=== PATIENT | male | born 1975 | race Caucasian/White ===

== ENCOUNTER 2017-02-10 21:49 | Emergency (ER) | payer BC, OTHER ==
[~2017-02-10] VITALS: Ht 182.9 cm; Wt 165.0 kg
[2017-02-10 21:51] VITALS: BP 135/80; PULSE 80; RESP 16; TEMP 99.1; O2SAT 99
[2017-02-10] MEDS ORDERED: TRIA.1%T TOPICAL (22:35)
--- NOTE | 2017-02-10 22:41 | PD ---
HPI Chief Complaint: Skin Problem Time Seen by Provider: 22:37 Travel History International Travel<30 days: No Contact w/Intl Traveler<30days: No Traveled to known affect area: No History of Present Illness HPI 41-year-old male presents to the emergency department for evaluation of discoloration of the skin of the right elbow, swelling and itching. He states that he suspects that he been bitten by something on his right elbow a few days ago. There has become swollen and discolored. He has been scratching the area. Initially states that the swelling has actually improved somewhat since yesterday but was concerned due to the discoloration. He also states that he has some tingling into his fingers. He denies any fever or chills. He does state that he has diabetes which is controlled with diet and metformin. He does not use insulin. He denies any fever or chills. No drainage. No warmth. Patient states that he just moved to the area one week ago from [place]. [facility] Past Medical History Narrative Medical Diabetes, hypertension Diabetes: Yes (metformin) Patient Takes Glucophage: Yes Hypertension: Yes Immunizations Current: Yes Tetanus Vaccination: < 5 Years Influenza Vaccination: No Past Surgical History Surgical History: No Previous Surgery Social History Alcohol Use: No Tobacco Use: No Substance Use: No Allergies-Medications (Allergen,Severity, Reaction): Coded Allergies: No Known Drug Allergies (Verified Allergy, Unknown, 02/10/17) Reported Meds & Prescriptions Reported Meds & Active Scripts Active Triamcinolone Topical (Triamcinolone Acetonide) 0.1% Cream 1 Applic TOPICAL TID 10 Days Review of Systems Except as stated in HPI: all other systems reviewed are Neg Physical Exam Narrative GENERAL: This is a well-nourished, well-developed patient, in no apparent distress. SKIN: No rashes, ecchymoses or lesions. Warm and dry. HEAD: Atraumatic. Normocephalic. EYES: PERRL, EOMI, no discharge or injection. No scleral icterus. EARS: Clear NOSE: Nasal turbinates appear normal. THROAT: Mucosa pink and moist. Airway patent. NECK: Trachea midline. supple, moves head freely. LUNGS: Clear to auscultation. CV: Regular in rhythm. ABDOMEN: Soft nontender. EXT: No clubbing cyanosis. Examination of the right upper extremity reveals some mild swelling from the tip of the elbow down to the proximal forearm. The patient has some mild discoloration of the skin. It is not erythematous or warmth. There is no fluctuance or pointing. There is no pain in the elbow, wrist or hand. He is able to move his fingers freely. He has good sensation. He has intact median/ulnar/radial nerves. Data Data Last Documented VS Vital Signs Date Time Temp Pulse Resp B/P (MAP) Pulse Ox O2 Delivery O2 Flow Rate FiO2 02/10/17 21:51 99.1 80 16 135/80 (98) 99 Room Air MDM Medical Decision Making Medical Screen Exam Complete: Yes Emergency Medical Condition: Yes Medical Record Reviewed: Yes Differential Diagnosis Differential diagnoses: Cellulitis, abscess, insect bite, insect bite with local reaction. Narrative Course This is insect bite with local reaction. Patient's encouraged to take 50 mg of Benadryl every 4 hours. He is given a prescription for triamcinolone cream. Follow-up with the clinic in 2 days. Diagnosis Primary Impression: Insect bite of forearm with local reaction Qualified Codes: S50.861A - Insect bite (nonvenomous) of right forearm, initial encounter; W57.XXXA - Bitten or stung by nonvenomous insect and other nonvenomous arthropods, initial encounter Patient Instructions: General Instructions Additional Instructions: Rest. Elevation. Icepack. 50 g of Benadryl every 4 hours. Triamcinolone cream. Follow-up with the [place] [facility] 2 days. Return to the ER if any problems. Med/Other Pt SpecificInfo: Prescription(s) given Scripts Triamcinolone Topical (Triamcinolone Topical) 0.1% Cream 1 APPLIC TOPICAL TID for Inflammation for 10 Days, GM 0 Refills Prov: Gail Cesar DO 02/10/17 Disposition: 01 DISCHARGE HOME Condition: Stable Shayne Britt Feb 10, 2017 22:41
[2017-02-10] MEDS ORDERED: diphenhydrAMINE HCL 50 MG CAP PO ONE (22:45)
== END 2017-02-10 22:54 | disposition home or self-care (01) ==
LOC: EDTENT 21:49
DX: S50.861A Insect bite (nonvenomous) of right forearm, initial encounter (principal); W57.XXXA Bitten or stung by nonvenomous insect and other nonvenomous arthropods, initial encounter; I10 Essential (primary) hypertension; E11.9 Type 2 diabetes mellitus without complications
CPT/HCPCS: 99283; Q0163

== ENCOUNTER 2017-05-16 12:05 | Inpatient (IN) | payer BC, MEDICAID, OTHER ==
[~2017-05-16] VITALS: Ht 182.9 cm; Wt 184.4 kg
[2017-05-16] VITALS (10 sets, daily range): BP systolic 158–200; BP diastolic 79–98; PULSE 78–92; RESP 18–22; TEMP 98.3–98.7; O2SAT 90–99
[~2017-05-16 12:05] MED LIST: TRIA.1%T TOPICAL
[2017-05-16] MEDS ORDERED: LOSA100T PO (12:20)
[2017-05-16] MEDS ORDERED: METF1000 PO (12:20)
--- NOTE | 2017-05-16 12:28 | PD ---
HPI Chief Complaint: Chest Pain Time Seen by Provider: 12:12 Travel History International Travel<30 days: No Contact w/Intl Traveler<30days: No Traveled to known affect area: No History of Present Illness HPI 41-year-old male presents to the emergency department for evaluation of headache , fatigue, shortness breath, chest pain. Patient states she started with a headache and fatigue 2 days ago. He also started with bilateral swelling of the lower extremities 3 days ago. Patient reports 8 out of 10 headache to the entire head, aching. He states the chest pain started yesterday. Patient reports midsternal chest pain as well as in the back. He states is 8 out of 10 without radiation, throbbing. He has associated shortness of breath, states he feels like he cannot catch his breath. He also reports cough and congestion. No fevers. No abdominal pain. No nausea, vomiting, diarrhea. He reports history of hypertension and diabetes. He denies any cardiac history. No history of CHF. He is a nonsmoker, denies ever smoking. His mother at bedside states that she has history of [place] 2. Moderate severity. No exacerbating or alleviating factors. PFSH Past Medical History Diabetes: Yes Hypertension: Yes Immunizations Current: Yes Social History Alcohol Use: No Tobacco Use: No Substance Use: No Allergies-Medications (Allergen,Severity, Reaction): Coded Allergies: No Known Drug Allergies (Verified Allergy, Unknown, 05/16/17) Reported Meds & Prescriptions Reported Meds & Active Scripts Active Reported Losartan (Losartan Potassium) 100 Mg Tab 100 Mg PO DAILY Metformin (Metformin HCl) 1,000 Mg Tab 1,000 Mg PO BIDPC Review of Systems Except as stated in HPI: all other systems reviewed are Neg Physical Exam Narrative GENERAL: Well-nourished, well-developed obese male patient, afebrile. SKIN: Focused skin assessment warm/dry. HEAD: Normocephalic. Atraumatic EYES: No scleral icterus. No injection or drainage. NECK: Supple, trachea midline. No JVD or lymphadenopathy. CARDIOVASCULAR: Regular rate and rhythm without murmurs, gallops, or rubs. Bilateral radial and pedal pulses 2+. RESPIRATORY: Breath sounds equal bilaterally. No accessory muscle use. Lungs sounds clear to auscultation, diminished in the bases. Patient is to tachypneic. GASTROINTESTINAL: Abdomen soft, non-tender, nondistended. MUSCULOSKELETAL: No cyanosis. 1-2+ bilateral lower extremity edema. BACK: Nontender without obvious deformity. No CVA tenderness. Data Data Last Documented VS Vital Signs Date Time Temp Pulse Resp B/P (MAP) Pulse Ox O2 Delivery O2 Flow Rate FiO2 05/16/17 14:25 81 18 171/98 (122) 99 Nasal Cannula 2.00 05/16/17 12:06 98.3 Orders Orders Complete Blood Count With Diff (05/16/17 12:20) Basic Metabolic Panel (Bmp) (05/16/17 12:20) B-Type Natriuretic Peptide (05/16/17 12:20) Act Partial Throm Time (Ptt) (05/16/17 12:20) Prothrombin Time / Inr (Pt) (05/16/17 12:20) Magnesium (Mg) (05/16/17 12:20) Ckmb (Isoenzyme) Profile (05/16/17 12:20) Troponin I (05/16/17 12:20) Iv Access Insert/Monitor (05/16/17 12:20) Electrocardiogram (05/16/17 12:20) Ecg Monitoring (05/16/17 12:20) Oximetry (05/16/17 12:20) Oxygen Administration (05/16/17 12:20) Chest, Single Ap (05/16/17 12:20) Sodium Chloride 0.9% Flush (Ns Flush) (05/16/17 12:30) Bilateral Bp Monitoring (05/16/17 12:20) Aspirin Chew (Aspirin Chew) (05/16/17 12:30) CKMB (05/16/17 12:38) CKMB% (05/16/17 12:38) Ct Pulmonary Angiogram (05/16/17 ) Ketorolac Inj (Toradol Inj) (05/16/17 14:30) Metoclopramide Inj (Reglan Inj) (05/16/17 14:30) Diphenhydramine Inj (Benadryl Inj) (05/16/17 14:30) Iohexol 350 Inj (Omnipaque 350 Inj) (05/16/17 15:00) Blood Culture (05/16/17 15:18) Lactic Acid Sepsis Protocol (05/16/17 15:18) Ceftriaxone Inj (Rocephin Inj) (05/16/17 15:30) Azithromycin Inj (Zithromax Inj) (05/16/17 15:30) Admit Order (Ed Use Only) (05/16/17 15:56) Labs Laboratory Tests Test 05/16/17 12:38 05/16/17 15:45 White Blood Count 12.1 TH/MM3 Red Blood Count 4.23 MIL/MM3 Hemoglobin 11.7 GM/DL Hematocrit 35.3 % Mean Corpuscular Volume 83.4 FL Mean Corpuscular Hemoglobin 27.5 PG Mean Corpuscular Hemoglobin Concent 33.0 % Red Cell Distribution Width 14.4 % Platelet Count 360 TH/MM3 Mean Platelet Volume 7.3 FL Neutrophils (%) (Auto) 72.5 % Lymphocytes (%) (Auto) 18.1 % Monocytes (%) (Auto) 7.6 % Eosinophils (%) (Auto) 1.5 % Basophils (%) (Auto) 0.3 % Neutrophils # (Auto) 8.8 TH/MM3 Lymphocytes # (Auto) 2.2 TH/MM3 Monocytes # (Auto) 0.9 TH/MM3 Eosinophils # (Auto) 0.2 TH/MM3 Basophils # (Auto) 0.0 TH/MM3 CBC Comment DIFF FINAL Differential Comment Prothrombin Time 10.1 SEC Prothromb Time International Ratio 1.0 RATIO Activated Partial Thromboplast Time 26.3 SEC Blood Urea Nitrogen 9 MG/DL Creatinine 0.76 MG/DL Random Glucose 185 MG/DL Calcium Level 8.3 MG/DL Magnesium Level 1.7 MG/DL Sodium Level 138 MEQ/L Potassium Level 3.6 MEQ/L Chloride Level 104 MEQ/L Carbon Dioxide Level 30.1 MEQ/L Anion Gap 4 MEQ/L Estimat Glomerular Filtration Rate 113 ML/MIN Total Creatine Kinase 119 U/L Creatine Kinase MB 1.9 NG/ML Troponin I LESS THAN 0.02 NG/ML B-Type Natriuretic Peptide 52 PG/ML Lactic Acid Level 1.3 mmol/L [facility] Medical Decision Making Medical Screen Exam Complete: Yes Emergency Medical Condition: Yes Medical Record Reviewed: Yes Interpretation(s) Last Impressions Chest X-Ray 05/16/17 1220 Signed Impressions: Service Date/Time: Tuesday, May 16, 2017 12:47 - CONCLUSION: 1. Scattered patchiness within the right lung consistent with possible developing infiltrate. Clinical correlation is recommended. 2. Mild cardiomegaly. Rito Menendez MD CT Angiography 05/16/17 0000 Signed Impressions: Service Date/Time: Tuesday, May 16, 2017 14:40 - CONCLUSION: Infiltrates throughout the right upper lobe possible areas of pneumonia. No evidence of pulmonary embolism. Michele Moura MD Differential Diagnosis Pneumonia versus ACS versus CHF versus PE versus pneumothorax Narrative Course 41-year-old male presents to the emergency department for evaluation of fatigue , chest pain, shortness of breath, bilateral lower extremity edema, headache. EKG shows sinus rhythm, heart rate 91, no acute ST changes. CBC, BMP, BNP, CK, troponin, magnesium, PTT, PT/INR are ordered and pending. Chest x-ray is ordered and pending. Patient is given aspirin 162 mg by mouth. CBC shows leukocytosis 12.1, mild anemia with a hemoglobin 11.7, hematocrit 35.3. BMP shows hyperglycemia of 185. BNP is 52. CK is 119. Troponin is less than 0.02. Magnesium is 1.7. Coags are unremarkable. Chest x-ray shows scattered patchiness within the right lung consistent with possible developing infiltrate. CT pulmonary angiogram is ordered and shows infiltrates throughout the right upper lobe possible areas of pneumonia, no evidence of PE. Patient remains short of breath. He is currently on 2 L O2 nasal cannula. Blood cultures 2, lactic acid are ordered. Patient started on Rocephin 1 g IV , azithromycin 500 mg IV. [facility] is paged for admission. Dr. Martin accepted admission. Sepsis Criteria SIRS Criteria (2 or more): Heart rate over 90, WBC > 58623, < 4000 or > 10% bands Sepsis Criteria (SIRS+source): Infect source susp/known Diagnosis Primary Impression: Pneumonia Qualified Codes: J18.1 - Lobar pneumonia, unspecified organism Additional Impression: Sepsis Qualified Codes: A41.9 - Sepsis, unspecified organism Admitting Information Admitting Physician Requests: Admit Dasha Randolph May 16, 2017 12:28
[2017-05-16] MEDS ORDERED: SODIUM CHLORIDE 0.9% FLUSH 10 ML FLUSH IVF PRN (12:30)
[2017-05-16] MEDS ORDERED: ASPIRIN 81 MG CHEW TAB CHEW ONE (12:30)
[2017-05-16 12:52] LABS: AUTOMATED NEUTROPHIL # 8.8 TH/MM3 (1.8-7.7); BASOPHIL % 0.3 % (0.0-2.0); EOSINOPHIL # 0.2 TH/MM3 (0-0.4); EOSINOPHIL % 1.5 % (0.0-4.0); HEMATOCRIT 35.3 % (39.0-51.0); HEMO FLAGS DIFF FINAL; LYMPH % 18.1 % (9.0-44.0); LYMPHOCYTE # 2.2 TH/MM3 (1.0-4.8); MEAN CELL VOLUME 83.4 FL (80.0-100.0); MEAN CORPUSCULAR HEMOGLOBIN 27.5 PG (27.0-34.0); MONO % 7.6 % (0.0-8.0); NEUT % 72.5 % (16.0-70.0); PLATELET COUNT 360 TH/MM3 (150-450); RED BLOOD COUNT 4.23 MIL/MM3 (4.50-5.90); RED CELL DISTRIBUTION WIDTH 14.4 % (11.6-17.2); WHITE BLOOD COUNT 12.1 TH/MM3 (4.0-11.0)
[2017-05-16 12:59] LABS: APTT (PATIENT) 26.3 SEC (24.3-30.1); PROTHROMBIN TIME - PATIENT 10.1 SEC (9.8-11.6)
[2017-05-16 13:07] LABS: ANION GAP 4 MEQ/L (5-15); BICARBONATE 30.1 MEQ/L (21.0-32.0); BLOOD UREA NITROGEN 9 MG/DL (7-18); CHLORIDE 104 MEQ/L (98-107); GLOMERULAR FILTRATION RATE 113 ML/MIN (>89); MAGNESIUM 1.7 MG/DL (1.5-2.5); POTASSIUM 3.6 MEQ/L (3.5-5.1); SODIUM (NA) 138 MEQ/L (136-145)
[2017-05-16 13:09] LABS: CREATINE KINASE 119 U/L (39-308)
[2017-05-16 13:22] LABS: CKMB 1.9 NG/ML (0.5-3.6)
--- NOTE | 2017-05-16 13:52 | RADRPT ---
EXAM DATE/TIME: 05/16/2017 12:47 [facility] COMPARISON: No previous studies available for comparison. INDICATIONS : Short of breath MEDICAL HISTORY : Hypertension. Diabetes mellitus type II. SURGICAL HISTORY : None. ENCOUNTER: Initial ACUITY: 2 days PAIN SCORE: 0/10 LOCATION: chest FINDINGS: The heart is mildly prominent. Minimal patchiness is noted within the right lung consistent with poss ible developing infiltrate. Clinical correlation is recommended. The left lung is clear. CONCLUSION: 1. Scattered patchiness within the right lung consistent with possible developing infiltrate. Clinica l correlation is recommended. 2. Mild cardiomegaly. Rito Menendez MD on May 16, 2017 at 13:48 Board Certified Radiologist. This report was verified electronically.
[2017-05-16] MEDS ORDERED: KETOROLAC TROMETHAMINE 30 MG/ML (IVP) VIAL IV PUSH ONE ×2 (14:30→23:45)
[2017-05-16] MEDS ORDERED: diphenhydrAMINE HCL 50 MG/ML VIAL IV PUSH ONE (14:30)
[2017-05-16] MEDS ORDERED: METOCLOPRAMIDE HCL 10 MG/2 ML VIAL IV PUSH ONE (14:30)
[2017-05-16] MEDS ORDERED: IOHEXOL 350 MG/ML 10 ML VIAL (for RAD DIAG) IVCONTRAST ONE (15:00)
--- NOTE | 2017-05-16 15:06 | RADRPT ---
EXAM DATE/TIME: 05/16/2017 14:40 [facility] COMPARISON: No previous studies available for comparison. INDICATIONS : Bilateral Chest pain and trouble breathing. IV CONTRAST: 70 cc Omnipaque 350 (iohexol) IV RADIATION DOSE: 25.75 CTDIvol (mGy) ; Patient body habitus MEDICAL HISTORY : Hypertension. Diabetes SURGICAL HISTORY : Cholecystectomy. ENCOUNTER: Initial ACUITY: 2 days PAIN SCALE: 2/10 LOCATION: Bilateral chest TECHNIQUE: Volumetric scanning of the chest was performed using a pulmonary embolism protocol MIP images were re constructed. Using automated exposure control and adjustment of the mA and/or kV according to patien t size, radiation dose was kept as low as reasonably achievable to obtain optimal diagnostic quality images. DICOM format image data is available electronically for review and comparison. Follow-up recommendations for detected pulmonary nodules are based at a minimum on nodule size and pa tient risk factors according to Fleischner Society Guidelines. FINDINGS: PULMONARY ARTERIES: No filling defects are seen in the pulmonary arteries through the segmental level. LUNGS: There numerous patchy areas of infiltrate in the right upper lobe and portions of the right lower lob e. PLEURAE: There is no pleural thickening but there are small bilateral pleural effusions. MEDIASTINUM: There is good visualization of the great vessels of the middle mediastinum. No evidence of mediastin al or hilar adenopathy/mass. MUSCULOSKELETAL: Within normal limits for patient age. MISCELLANEOUS: The visualized upper abdominal organs demonstrate no acute abnormality. Cholecystectomy clips CONCLUSION: Infiltrates throughout the right upper lobe possible areas of pneumonia. No evidence of pulmonary emb olism. Michele Moura MD on May 16, 2017 at 15:02 Board Certified Radiologist. This report was verified electronically.
[2017-05-16] MEDS ORDERED: AZITHROMYCIN INJ 500 MG in SODIUM CHLOR 0.9% 250 ML INJ 250 ML IV ONE (15:30)
[2017-05-16] MEDS ORDERED: cefTRIAXone INJ 1,000 MG in SODIUM CHLORIDE 0.9% INJ 100 ML IV ONE (15:30)
[2017-05-16] MEDS ORDERED: LACTULOSE SYRUP 20 GM/30 ML CUP PO PRN (16:15)
[2017-05-16] MEDS ORDERED: ONDANSETRON HCL 4 MG/2 ML VIAL IVP PRN (16:15)
[2017-05-16] MEDS ORDERED: MAGNESIUM HYDROXIDE SUSP 30 ML CUP PO PRN (16:15)
[2017-05-16] MEDS ORDERED: ACETAMINOPHEN 325 MG TAB PO PRN (16:15)
[2017-05-16] MEDS ORDERED: SODIUM CHLORIDE 0.9% FLUSH 10 ML FLUSH IV FLUSH PRN (16:15)
[2017-05-16] MEDS ORDERED: BISACODYL 10 MG SUPP RECTAL PRN (16:15)
[2017-05-16] MEDS ORDERED: SENNOSIDES 8.6 MG TAB PO PRN (16:15)
[2017-05-16] MEDS ORDERED: NALOXONE HCL 0.4 MG/ML AMP IV PUSH PRN (16:15)
--- NOTE | 2017-05-16 16:25 | HHI.HP ---
[facility]PI Service [facility] Primary [facility] Physician No Primary Care Physician Admission Diagnosis pneumonia, sepsis Diagnoses: (1) Pneumonia Diagnosis: Principal (2) Sepsis Diagnosis: Principal (3) Leg swelling Diagnosis: Secondary Chief Complaint: SOB with chest pain Travel History International Travel<30 Days: No Contact w/Intl Traveler <30 Da: No Traveled to Known Affected Are: No Sepsis Criteria SIRS Criteria (2 or more): Heart rate over 90, WBC > 28610, < 4000 or > 10% bands Sepsis Criteria (SIRS+source): Infect source susp/known Criteria Outcome: Meets SIRS criteria History of Present Illness Written by Stephanie Fried, acting as scribe for Dr. Martin on 05/16/17 at 17:16. 41-year-old male with PMH of HTN, DM, and sleep apnea. Who presented to the ED with complaints of SOB along with chest pain. Patient was seen and examined in ED stretcher with mother at bedside. He repots chest pain radiating to the back , worse with lying down, SOB worse on exertion. He also states that he feels as if his heart is working harder with exertion and could feel his heart working harder.Report a cough but no productive with no fever, but endorses chills and headaches. He states that he feels as if he has wheezing with his breathing. Denies nausea, vomiting, diarrhea, or constipation. He also repots swelling of bilateral legs X3 days, but this has improved. He does not repot a history of DVT's. He denies any known past cardiac issues. He does have a history of RLS and would like to know if he could possibly get something for this while he is in the hospital. Review of Systems Constitutional: COMPLAINS OF: Chills Respiratory: COMPLAINS OF: Cough, Wheezing Cardiovascular: COMPLAINS OF: Chest pain, Dyspnea on Exertion, Lower Extremity Edema Except as stated in HPI: all other systems reviewed are Neg Past Family Social History Past Medical History Diabetes Hypertension Sleep apnea Restless leg syndrome Past Surgical History Cholecystectomy Reported Medications Reported Meds & Active Scripts Active Reported Losartan (Losartan Potassium) 100 Mg Tab 100 Mg PO DAILY Metformin (Metformin HCl) 1,000 Mg Tab 1,000 Mg PO BIDPC Allergies: Coded Allergies: No Known Drug Allergies (Verified Allergy, Unknown, 05/16/17) Family History Mother: Diabetes, hyperlipidemia, hypertension, stroke, MA Social History Tobacco: Denies Alcohol use: occasionally Illicit drug use: denies Physical Exam Vital Signs Vital Signs Date Time Temp Pulse Resp B/P (MAP) Pulse Ox O2 Delivery O2 Flow Rate FiO2 05/16/17 14:25 81 18 171/98 (122) 99 Nasal Cannula 2.00 05/16/17 13:20 80 18 169/87 (114) 97 Nasal Cannula 2.00 05/16/17 12:25 85 20 179/85 (116) 169/79 (109) 05/16/17 12:25 97 Nasal Cannula 2.00 05/16/17 12:20 88 20 179/85 (116) 97 Nasal Cannula 2.00 05/16/17 12:20 87 18 97 Nasal Cannula 2.00 05/16/17 12:06 98.3 92 22 200/92 (128) 90 Physical Exam GENERAL: This is a well-nourished, well-developed obese male, in no apparent distress. SKIN: No rashes, ecchymoses or lesions. Cool and dry. HEAD: Atraumatic. Normocephalic. No temporal or scalp tenderness. EYES: Pupils equal round and reactive. No scleral icterus. No injection or drainage. ENT: Nose without bleeding, purulent drainage or septal hematoma. Throat without erythema, tonsillar hypertrophy or exudate. Uvula midline. Airway patent. NECK: Trachea midline. No JVD or lymphadenopathy. Supple, nontender. CARDIOVASCULAR: Regular rate and rhythm without murmurs, gallops, or rubs. RESPIRATORY: Lateral lower lobe rales, No wheezes, or rhonchi. GASTROINTESTINAL: Abdomen soft, non-tender, nondistended. MUSCULOSKELETAL: Bilateral lower leg and ankle +1 pitting edema, No joint tenderness, effusion, or edema noted. NEUROLOGICAL: Awake and alert. Moves all extremities spontaneously. Motor and sensory grossly within normal limits. Five out of 5 muscle strength in all muscle groups. Normal speech. Laboratory Laboratory Tests Test 05/16/17 12:38 05/16/17 15:45 White Blood Count 12.1 Red Blood Count 4.23 Hemoglobin 11.7 Hematocrit 35.3 Mean Corpuscular Volume 83.4 Mean Corpuscular Hemoglobin 27.5 Mean Corpuscular Hemoglobin Concent 33.0 Red Cell Distribution Width 14.4 Platelet Count 360 Mean Platelet Volume 7.3 Neutrophils (%) (Auto) 72.5 Lymphocytes (%) (Auto) 18.1 Monocytes (%) (Auto) 7.6 Eosinophils (%) (Auto) 1.5 Basophils (%) (Auto) 0.3 Neutrophils # (Auto) 8.8 Lymphocytes # (Auto) 2.2 Monocytes # (Auto) 0.9 Eosinophils # (Auto) 0.2 Basophils # (Auto) 0.0 CBC Comment DIFF FINAL Differential Comment Prothrombin Time 10.1 Prothromb Time International Ratio 1.0 Activated Partial Thromboplast Time 26.3 Blood Urea Nitrogen 9 Creatinine 0.76 Random Glucose 185 Calcium Level 8.3 Magnesium Level 1.7 Sodium Level 138 Potassium Level 3.6 Chloride Level 104 Carbon Dioxide Level 30.1 Anion Gap 4 Estimat Glomerular Filtration Rate 113 Total Creatine Kinase 119 Creatine Kinase MB 1.9 Troponin I LESS THAN 0.02 B-Type Natriuretic Peptide 52 Date/Time Source Procedure Growth Status 05/16/17 15:45 Blood Peripheral Aerobic Blood Culture Pending Received 05/16/17 15:45 Blood Peripheral Anaerobic Blood Culture Pending Received Result Diagram: 05/16/17 1238 05/16/17 1238 Imaging Last Impressions Chest X-Ray 05/16/17 1220 Signed Impressions: Service Date/Time: Tuesday, May 16, 2017 12:47 - CONCLUSION: 1. Scattered patchiness within the right lung consistent with possible developing infiltrate. Clinical correlation is recommended. 2. Mild cardiomegaly. Rito Menendez MD CT Angiography 05/16/17 0000 Signed Impressions: Service Date/Time: Tuesday, May 16, 2017 14:40 - CONCLUSION: Infiltrates throughout the right upper lobe possible areas of pneumonia. No evidence of pulmonary embolism. Michele Moura MD Caprini VTE Risk Assessment Caprini VTE Risk Assessment: No/Low Risk (score <= 1) Caprini Risk Assessment Model Point Value = 1 Point Value = 2 Point Value = 3 Point Value = 5 Age 41-60 Minor surgery BMI > 25 kg/m2 Swollen legs Varicose veins or History of unexplained or recurrent spontaneous Oral contraceptives or hormone replacement Sepsis (< 1 month) Serious lung disease, including pneumonia (< 1 month) Abnormal pulmonary function Acute myocardial infarction Congestive heart failure (< 1 month) History of inflammatory bowel disease Medical patient at bed rest Age 61-74 Arthroscopic surgery Major open surgery (> 45 min) Laparoscopic surgery (> 45 min) Malignancy Confined to bed (> 72 hours) Immobilizing plaster cast Central venous access Age >= 75 History of VTE Family history of VTE Factor V Leiden Prothrombin [id number] Lupus anticoagulant Anticardiolipin antibodies Elevated serum homocysteine Heparin-induced thrombocytopenia Other congenital or acquired thrombophilia Stroke (< 1 month) Elective arthroplasty Hip, pelvis, or leg fracture Acute spinal cord injury (< 1 month) Prophylaxis Regimen Total Risk Factor Score Risk Level Prophylaxis Regimen 0-1 Low Early ambulation 2 Moderate Order ONE of the following: *Sequential Compression Device (SCD) *Heparin 5000 units SQ BID 3-4 Higher Order ONE of the following medications: *Heparin 5000 units SQ TID *Enoxaparin/Lovenox 40 mg SQ daily (WT < 150 kg, CrCl > 30 mL/min) *Enoxaparin/Lovenox 30 mg SQ daily (WT < 150 kg, CrCl > 10-29 mL/min) *Enoxaparin/Lovenox 30 mg SQ BID (WT < 150 kg, CrCl > 30 mL/min) AND/OR *Sequential Compression Device (SCD) 5 or more Highest Order ONE of the following medications: *Heparin 5000 units SQ TID (Preferred with Epidurals) *Enoxaparin/Lovenox 40 mg SQ daily (WT < 150 kg, CrCl > 30 mL/min) *Enoxaparin/Lovenox 30 mg SQ daily (WT < 150 kg, CrCl > 10-29 mL/min) *Enoxaparin/Lovenox 30 mg SQ BID (WT < 150 kg, CrCl > 30 mL/min) AND *Sequential Compression Device (SCD) Assessment and Plan Assessment and Plan 41-year-old male with PMH of HTN, DM, and sleep apnea. Who presented to the ED with complaints of SOB, chest pain, and bilateral leg swelling. Right upper lobe pneumonia, most likely community-acquired, meets SIRS criteria Active dyspnea - Chest x-ray results reviewed showing scattered patches within the right lung consistent with possible developing infiltrates, cardiomegaly - CT angiogram results reviewed showing infiltrates throughout the right upper lobe possible areas of pneumonia, no pulmonary embolism seen. - WBC count on admission 12.1, O2 sat 90% with pulse 92. - Patient was administered ceftriaxone and azithromycin while in the ED, will continue IV antibiotics for community-acquired pneumonia. - BC X2 obtained, follow results - O2 via nasal cannula with O2 sats now in high 90's - Chest pain likely related to PNA, troponin negative, EKG reviewed showing normal sinus rhythm. - PT for evaluation and treatment ordered Bilateral leg swelling, acute - CTA negative for PE - Order bilateral leg US to rule out DVT - 2D echo to check for new onset of CHF as x-ray did show cardiomegaly. HTN, uncontrolled - Will resume home dose of losartan - Continue monitoring BP trends - Telemetry ordered Diabetes, chronic - Will hold off on oral glycemic agents for the moment. - Diabetic diet, insulin sliding scale, adjust accordingly Restless leg syndrome, chronic - Trial of Requip, assess response tomorrow. VTE: -TESS alexe, SCD's, Sq Lovenox Patient discussed with SANJAY Vo in the ED This note was transcribed by RACHID Ramsey . I, Dr. Rabia Martin personally performed the history, physical exam, and medical decision making; and confirmed the accuracy of the information in the transcribed note. Authenticated by Dr. Rabia Martin on 05/16/17 at 17:16. Code Status Full code Discussed Condition With ED ANIMATION PRODUCER Physician Certification 2 Midnight Certification Type: Admission for Inpatient Services Order for Inpatient Services The services are ordered in accordance with Medicare regulations or non- Medicare payer requirements, as applicable. In the case of services not specified as inpatient-only, they are appropriately provided as inpatient services in accordance with the 2-midnight benchmark. Estimated LOS (days): 3 3 days is the estimated time the patient will need to remain in the hospital, assuming treatment plan goals are met and no additional complications. Post-Hospital Plan: Home Problem Qualifiers (1) Pneumonia: Qualified Codes: J18.1 - Lobar pneumonia, unspecified organism (2) Sepsis: Qualified Codes: A41.9 - Sepsis, unspecified organism Stephanie Fried May 16, 2017 16:25 Rabia Martin MD May 16, 2017 19:23
--- NOTE | 2017-05-16 16:44 | PD ---
Data Data Last Documented VS Vital Signs Date Time Temp Pulse Resp B/P (MAP) Pulse Ox O2 Delivery O2 Flow Rate FiO2 05/16/17 14:25 81 18 171/98 (122) 99 Nasal Cannula 2.00 05/16/17 12:06 98.3 Orders Orders Complete Blood Count With Diff (05/16/17 12:20) Basic Metabolic Panel (Bmp) (05/16/17 12:20) B-Type Natriuretic Peptide (05/16/17 12:20) Act Partial Throm Time (Ptt) (05/16/17 12:20) Prothrombin Time / Inr (Pt) (05/16/17 12:20) Magnesium (Mg) (05/16/17 12:20) Ckmb (Isoenzyme) Profile (05/16/17 12:20) Troponin I (05/16/17 12:20) Iv Access Insert/Monitor (05/16/17 12:20) Electrocardiogram (05/16/17 12:20) Ecg Monitoring (05/16/17 12:20) Oximetry (05/16/17 12:20) Oxygen Administration (05/16/17 12:20) Chest, Single Ap (05/16/17 12:20) Sodium Chloride 0.9% Flush (Ns Flush) (05/16/17 12:30) Bilateral Bp Monitoring (05/16/17 12:20) Aspirin Chew (Aspirin Chew) (05/16/17 12:30) CKMB (05/16/17 12:38) CKMB% (05/16/17 12:38) Ct Pulmonary Angiogram (05/16/17 ) Ketorolac Inj (Toradol Inj) (05/16/17 14:30) Metoclopramide Inj (Reglan Inj) (05/16/17 14:30) Diphenhydramine Inj (Benadryl Inj) (05/16/17 14:30) Iohexol 350 Inj (Omnipaque 350 Inj) (05/16/17 15:00) Blood Culture (05/16/17 15:18) Lactic Acid Sepsis Protocol (05/16/17 15:18) Ceftriaxone Inj (Rocephin Inj) (05/16/17 15:30) Azithromycin Inj (Zithromax Inj) (05/16/17 15:30) Admit Order (Ed Use Only) (05/16/17 15:56) Labs Laboratory Tests Test 05/16/17 12:38 05/16/17 15:45 White Blood Count 12.1 TH/MM3 Red Blood Count 4.23 MIL/MM3 Hemoglobin 11.7 GM/DL Hematocrit 35.3 % Mean Corpuscular Volume 83.4 FL Mean Corpuscular Hemoglobin 27.5 PG Mean Corpuscular Hemoglobin Concent 33.0 % Red Cell Distribution Width 14.4 % Platelet Count 360 TH/MM3 Mean Platelet Volume 7.3 FL Neutrophils (%) (Auto) 72.5 % Lymphocytes (%) (Auto) 18.1 % Monocytes (%) (Auto) 7.6 % Eosinophils (%) (Auto) 1.5 % Basophils (%) (Auto) 0.3 % Neutrophils # (Auto) 8.8 TH/MM3 Lymphocytes # (Auto) 2.2 TH/MM3 Monocytes # (Auto) 0.9 TH/MM3 Eosinophils # (Auto) 0.2 TH/MM3 Basophils # (Auto) 0.0 TH/MM3 CBC Comment DIFF FINAL Differential Comment Prothrombin Time 10.1 SEC Prothromb Time International Ratio 1.0 RATIO Activated Partial Thromboplast Time 26.3 SEC Blood Urea Nitrogen 9 MG/DL Creatinine 0.76 MG/DL Random Glucose 185 MG/DL Calcium Level 8.3 MG/DL Magnesium Level 1.7 MG/DL Sodium Level 138 MEQ/L Potassium Level 3.6 MEQ/L Chloride Level 104 MEQ/L Carbon Dioxide Level 30.1 MEQ/L Anion Gap 4 MEQ/L Estimat Glomerular Filtration Rate 113 ML/MIN Total Creatine Kinase 119 U/L Creatine Kinase MB 1.9 NG/ML Troponin I LESS THAN 0.02 NG/ML B-Type Natriuretic Peptide 52 PG/ML Lactic Acid Level 1.3 mmol/L [facility] Supervised Visit with KENYON: Yes Narrative Course The history, exam, and medical decision-making in the associated midlevel provider note were completed with my assistance. I reviewed and agree with the findings presented. I attest that I had a [id number] encounter with the patient on the same day, and personally performed and documented my assessment and findings in the medical record. *My assessment and Findings: This is a 41-year-old male who presents to the emergency department with chest discomfort and shortness of breath. He has a mild leukocytosis and is borderline hypoxic on arrival.. CT of the chest demonstrates a marked right sided pneumonia. Patient appears ill on exam and dyspneic. I think he would benefit from observation for IV antibiotics. Diagnosis Primary Impression: Pneumonia Qualified Codes: J18.1 - Lobar pneumonia, unspecified organism Additional Impression: Sepsis Qualified Codes: A41.9 - Sepsis, unspecified organism Alexandra Boudreaux MD May 16, 2017 16:44
[2017-05-16] MEDS: ENOXAPARIN SODIUM 40 MG/0.4 ML SYRINGE SQ SCH (17:00)
[2017-05-16] MEDS: SODIUM CHLOR 0.9% 1000 ML INJ 1,000 ML IV SCH (17:09)
[2017-05-16] MEDS ORDERED: DEXTROSE 50% IN WATER 50 ML VIAL(D50) IV PUSH PRN (18:15)
[2017-05-16] MEDS ORDERED: GLUCAGON 1 MG/ML VIAL OTHER PRN (18:15)
--- NOTE | 2017-05-16 18:31 | RADRPT ---
EXAM DATE/TIME: 05/16/2017 17:57 [place] COMPARISON: No previous studies available for comparison. INDICATIONS : Bilateral leg swelling. MEDICAL HISTORY : Hypertension. Diabestes. Alcohol use. Lugoff palsy. SURGICAL HISTORY : Cholecystectomy. ENCOUNTER: Initial ACUITY: 1 day PAIN SCORE: 2/10 LOCATION: Bilateral legs. TECHNIQUE: Venous ultrasound of the left and right leg was performed from the inguinal ligament to the proximal calf. Real-time, color Doppler and spectral tracing, compression and augmentation techniques were us ed. FINDINGS: RIGHT LEG: There is normal compressibility of the deep venous system from the inguinal region to the proximal ca lf. No echogenic clot is seen in the lumen of the common femoral, femoral, popliteal, and posterior tibial veins. There is a normal response of the venous system to proximal and distal augmentation an d respiration. LEFT LEG: There is normal compressibility of the deep venous system from the inguinal region to the proximal ca lf. No echogenic clot is seen in the lumen of the common femoral, femoral, popliteal, and posterior tibial veins. There is a normal response of the venous system to proximal and distal augmentation an d respiration. CONCLUSION: Normal examination. Michele Moura MD on May 16, 2017 at 18:29 Board Certified Radiologist. This report was verified electronically.
[2017-05-16] MEDS: SODIUM CHLORIDE 0.9% FLUSH 10 ML FLUSH IV FLUSH SCH (21:00)
[2017-05-16] MEDS: DOCUSATE SODIUM 50 MG/SENNA 8.6 MG TAB PO SCH (21:00)
[2017-05-16] MEDS: INSULIN ASPART SUPPLEMENTAL SCALE SQ SCH (21:00)
[2017-05-16] MEDS: TEMAZEPAM 15 MG CAP PO PRN (21:54)
[2017-05-16] MEDS ORDERED: TEMAZEPAM 15 MG CAP PO ONE (23:45)
[2017-05-17] VITALS (11 sets, daily range): BP systolic 153–189; BP diastolic 62–112; PULSE 78–100; RESP 18–20; TEMP 98.3–99.4; O2SAT 91–97
[2017-05-17] MEDS: SODIUM CHLOR 0.9% 1000 ML INJ 1,000 ML IV SCH ×2 (02:05→06:05)
[2017-05-17 07:12] LABS: BASOPHIL # 0.2 TH/MM3 (0-0.2); BASOPHIL % 1.4 % (0.0-2.0); EOSINOPHIL # 0.2 TH/MM3 (0-0.4); EOSINOPHIL % 1.4 % (0.0-4.0); HEMATOCRIT 33.4 % (39.0-51.0); HEMO FLAGS DIFF FINAL; LYMPH % 18.1 % (9.0-44.0); LYMPHOCYTE # 2.6 TH/MM3 (1.0-4.8); MEAN CORPUSCULAR HEMOGLOBIN 27.8 PG (27.0-34.0); MEAN CORPUSCULAR HGB CONC 33.2 % (32.0-36.0); NEUT % 71.1 % (16.0-70.0); PLATELET COUNT 366 TH/MM3 (150-450); RED BLOOD COUNT 3.98 MIL/MM3 (4.50-5.90); RED CELL DISTRIBUTION WIDTH 14.5 % (11.6-17.2); WHITE BLOOD COUNT 14.1 TH/MM3 (4.0-11.0)
[2017-05-17 07:35] LABS: BICARBONATE 28.3 MEQ/L (21.0-32.0); POTASSIUM 3.5 MEQ/L (3.5-5.1)
[2017-05-17] MEDS: INSULIN ASPART SUPPLEMENTAL SCALE SQ SCH ×4 (07:59→21:55)
[2017-05-17] MEDS ORDERED: KETOROLAC TROMETHAMINE 30 MG/ML (IVP) VIAL IV PUSH ONE (08:30)
[2017-05-17] MEDS: DOCUSATE SODIUM 50 MG/SENNA 8.6 MG TAB PO SCH ×2 (08:48→21:00)
[2017-05-17] MEDS: LOSARTAN 50 MG TAB PO SCH (08:48)
[2017-05-17] MEDS: SODIUM CHLORIDE 0.9% FLUSH 10 ML FLUSH IV FLUSH SCH ×2 (09:00→22:00)
[2017-05-17] MEDS ORDERED: ACETAMINOPHEN/HYDROcodone 325 MG/5 MG TAB PO PRN (13:30)
[2017-05-17] MEDS ORDERED: cloNIDine HCL 0.1 MG TAB PO PRN (13:30)
[2017-05-17] MEDS ORDERED: SUMAtriptan SUCCINATE 25 MG TAB PO PRN (13:30)
--- NOTE | 2017-05-17 13:34 | HHI.PR ---
Subjective Remarks And reports persistent headache. BP uncontrolled. States he normally takes Topamax for maintenance due to migraine headaches. No nausea or vomiting. No chest pressure. Objective Vitals Vital Signs Date Time Temp Pulse Resp B/P (MAP) Pulse Ox O2 Delivery O2 Flow Rate FiO2 05/17/17 13:01 93 20 171/62 (98) 05/17/17 12:00 99.4 92 20 178/112 (134) 93 05/17/17 11:44 100 05/17/17 08:00 99.0 92 20 189/103 (131) 94 05/17/17 07:55 89 05/17/17 07:54 Room Air 05/17/17 04:00 Room Air 05/17/17 04:00 98.5 93 20 153/91 (111) 91 05/17/17 00:00 98.9 89 20 163/93 (116) 94 05/17/17 00:00 88 05/17/17 00:00 Room Air 05/16/17 20:11 89 05/16/17 20:00 98.7 86 20 158/86 (110) 95 05/16/17 19:30 Room Air 05/16/17 18:59 05/16/17 17:10 82 18 173/95 (121) 98 Nasal Cannula 2.00 05/16/17 16:40 99 Nasal Cannula 2.00 05/16/17 16:00 78 18 175/85 (115) 98 Nasal Cannula 2.00 05/16/17 14:25 81 18 171/98 (122) 99 Nasal Cannula 2.00 I/O 05/16/17 05/16/17 05/16/17 05/17/17 05/17/17 05/17/17 07:00 15:00 23:00 07:00 15:00 23:00 Intake Total 1473 ml 500 ml Output Total 600 ml Balance 873 ml 500 ml Intake Oral 480 ml IV Total 993 ml 500 ml Output Urine Total 600 ml # Bowel Movements 0 Result Diagram: 05/17/17 0633 05/17/17 0633 Imaging Last Impressions Chest X-Ray 05/16/17 1220 Signed Impressions: Service Date/Time: Tuesday, May 16, 2017 12:47 - CONCLUSION: 1. Scattered patchiness within the right lung consistent with possible developing infiltrate. Clinical correlation is recommended. 2. Mild cardiomegaly. Rito Menendez MD Lower Extremity Ultrasound 05/16/17 0000 Signed Impressions: Service Date/Time: Tuesday, May 16, 2017 17:57 - CONCLUSION: Normal examination. Michele Moura MD CT Angiography 05/16/17 0000 Signed Impressions: Service Date/Time: Tuesday, May 16, 2017 14:40 - CONCLUSION: Infiltrates throughout the right upper lobe possible areas of pneumonia. No evidence of pulmonary embolism. Michele Moura MD Objective Remarks GENERAL: Obese male in no apparent distress. CARDIOVASCULAR: Normal rate and regular rhythm without murmurs, gallops, or rubs. RESPIRATORY: Good respiratory efforts. Faint rhonchi on the right base. Otherwise clear to auscultation bilaterally. GASTROINTESTINAL: Abdomen soft, non-tender, non-distended. Normal active bowel sounds MUSCULOSKELETAL: Extremities without cyanosis, or edema. NEURO: Alert & Oriented x4 to person, place, time, situation. Moves all ext x4 PSYCH: Appropriate mood and affect. A/P Problem List: (1) Pneumonia ICD Code: J18.9 - Pneumonia, unspecified organism Status: Acute (2) Sepsis ICD Code: A41.9 - Sepsis, unspecified organism Status: Acute (3) Leg swelling ICD Code: M79.89 - Other specified soft tissue disorders Assessment and Plan 41-year-old male with PMH of HTN, DM, and sleep apnea who presented to the ED with complaints of SOB, chest pain, and bilateral leg swelling. Right upper lobe pneumonia, most likely community-acquired, meets SIRS criteria. Both chest x-ray and CTA confirmed infiltrates Active dyspnea: Improving. - Continue antibiotics with Rocephin and azithromycin. Supplemental oxygen as needed - Incentive spirometry Bilateral leg swelling, acute: Could be dependent edema. - CTA negative for PE -Lower extremity ultrasound negative. - 2D echo to check for new onset of CHF as x-ray did show cardiomegaly. Migraines: - Uncontrolled. - Will try triptan. Resume Topomax at 50 mg. Patient does not know her home dose. HTN, uncontrolled - Resume home dose of losartan -Add Coreg. - Telemetry ordered - Clonidine as needed Diabetes, chronic -Hold oral hypoglycemic agents - Diabetic diet, insulin sliding scale, adjust accordingly Restless leg syndrome, chronic - Trial of Requip, assess response. VTE: -TESS peña, SCD's, Sq Lovenox Problem Qualifiers (1) Pneumonia: Qualified Codes: J18.1 - Lobar pneumonia, unspecified organism (2) Sepsis: Qualified Codes: A41.9 - Sepsis, unspecified organism Jaspreet Jimenez MD May 17, 2017 13:34
[2017-05-17] MEDS: CARVEDILOL 3.125 MG TAB PO SCH ×2 (13:58→21:52)
[2017-05-17] MEDS ORDERED: cefTRIAXone INJ 1,000 MG in SODIUM CHLORIDE 0.9% INJ 100 ML IV SCH (15:00)
[2017-05-17] MEDS ORDERED: AZITHROMYCIN INJ 500 MG in SODIUM CHLOR 0.9% 250 ML INJ 250 ML IV SCH (16:00)
--- NOTE | 2017-05-17 16:31 | EKG ---
Date Performed: 05/16/2017 Time Performed: 12:18:05 PTAGE: 41 years EKG: Sinus rhythm NORMAL ECG NO PREVIOUS TRACING DOCTOR: Elizabeth To Interpretating Date/Time 05/17/2017 16:29:26
[2017-05-17] MEDS: ENOXAPARIN SODIUM 40 MG/0.4 ML SYRINGE SQ SCH (16:45)
[2017-05-17] MEDS: TOPIRAMATE 25 MG TAB PO SCH (21:54)
[2017-05-17] MEDS: TEMAZEPAM 15 MG CAP PO PRN (21:59)
[2017-05-18] VITALS (7 sets, daily range): BP systolic 161–186; BP diastolic 103–111; PULSE 77–95; RESP 18–20; TEMP 98.1–99.1; O2SAT 92–96
[2017-05-18 07:11] LABS: HEMATOCRIT 34.4 % (39.0-51.0); MEAN CELL VOLUME 82.7 FL (80.0-100.0); MEAN CORPUSCULAR HGB CONC 33.9 % (32.0-36.0); PLATELET COUNT 392 TH/MM3 (150-450); RED BLOOD COUNT 4.16 MIL/MM3 (4.50-5.90); RED CELL DISTRIBUTION WIDTH 14.6 % (11.6-17.2); REVIEW FLAG FINAL
[2017-05-18] MEDS: LOSARTAN 50 MG TAB PO SCH (07:50)
[2017-05-18] MEDS: SODIUM CHLORIDE 0.9% FLUSH 10 ML FLUSH IV FLUSH SCH (07:50)
[2017-05-18] MEDS: TOPIRAMATE 25 MG TAB PO SCH (07:50)
[2017-05-18] MEDS: INSULIN ASPART SUPPLEMENTAL SCALE SQ SCH ×2 (07:50→12:00)
[2017-05-18] MEDS: CARVEDILOL 3.125 MG TAB PO SCH (07:50)
[2017-05-18] MEDS: DOCUSATE SODIUM 50 MG/SENNA 8.6 MG TAB PO SCH (07:52)
[2017-05-18] MEDS ORDERED: CARV6.252 PO (13:17)
[2017-05-18] MEDS ORDERED: AZIT500T2 PO (13:24)
[2017-05-18] MEDS ORDERED: CEFU1TAB20 PO (13:24)
--- NOTE | 2017-05-18 13:34 | HHI.DCPOC ---
Discharge Care Plan Diagnosis: (1) Pneumonia (2) Migraine (3) Hypertension Goals to Promote Your Health * To prevent worsening of your condition and complications * To maintain your health at the optimal level Directions to Meet Your Goals Take your medications as prescribed Follow your dietary instruction Follow activity as directed Keep your appointments as scheduled Take your immunizations and boosters as scheduled If your symptoms worsen call your PCP, if no PCP go to Urgent Care Center or Emergency Room Smoking is Dangerous to Your Health. Avoid second hand smoke Call the 24-hour hour crisis hotline for domestic abuse at Jaspreet Jimenez MD May 18, 2017 13:34
--- NOTE | 2017-05-18 16:19 | ECHRPT ---
Indication: Shortness of breath CONCLUSIONS The left ventricular systolic function is normal with an estimated ejection fraction in the range of 55-60%. Trace mitral valve regurgitation. There is trace tricuspid valve regurgitation. Trivial pulmonary valve regurgitation. BP: 148 / 84 HR: 105 Rhythm: Sinus MEASUREMENTS (Male / Female) Normal Values Technical Quality:Fair 2D ECHO LV Diastolic Diameter PLAX 5.3 cm 4.2 - 5.9 / 3.9 - 5.3 cm LV Systolic Diameter PLAX 4.0 cm IVS Diastolic Thickness 1.1 cm 0.6 - 1.0 / 0.6 - 0.9 cm LVPW Diastolic Thickness 1.1 cm 0.6 - 1.0 / 0.6 - 0.9 cm LV Relative Wall Thickness 0.4 LVOT Diameter 2.2 cm M-MODE Aortic Root Diameter MM 3.3 cm LA Systolic Diameter MM 4.0 cm LA Ao Ratio MM 1.2 AV Cusp Separation MM 2.3 cm DOPPLER AV Peak Velocity 110.0 cm/s AV Peak Gradient 4.8 mmHg LVOT Peak Velocity 93.8 cm/s LVOT Peak Gradient 3.5 mmHg AV Area Cont Eq pk 3.2 cm MR Peak Velocity 320.0 cm/s MR Peak Gradient 41.0 mmHg Mitral E Point Velocity 104.0 cm/s Mitral A Point Velocity 52.8 cm/s Mitral E to A Ratio 2.0 LV E' Lateral Velocity 16.8 cm/s Mitral E to LV E' Lateral Ratio 6.2 LV E' Septal Velocity 10.0 cm/s Mitral E to LV E' Septal Ratio 10.4 TR Peak Velocity 201.0 cm/s TR Peak Gradient 16.2 mmHg Right Atrial Pressure 10.0 mmHg Pulmonary Artery Systolic Pressu 26.2 mmHg Right Ventricular Systolic Press 26.2 mmHg PV Peak Velocity 102.0 cm/s PV Peak Gradient 4.2 mmHg FINDINGS LEFT VENTRICLE The left ventricular systolic function is normal with an estimated ejection fraction in the range of 55-60%. Wall thickness is measured at the upper limits of normal. Normal left ventricular size. There was limited left ventricular wall motion assessment due to poor endocardial visualization. Left ventricular diastolic function parameters are normal. RIGHT VENTRICLE Normal right ventricular size and systolic function. LEFT ATRIUM The left atrial size is mildly dilated. RIGHT ATRIUM The right atrial size is normal. ATRIAL SEPTUM Normal atrial septal thickness. AORTA The aortic root and proximal ascending aorta are normal in size on limited imaging. MITRAL VALVE Structurally normal mitral valve. Trace mitral valve regurgitation. No mitral valve stenosis. AORTIC VALVE Probable trileaflet aortic valve. No aortic valve stenosis or regurgitation. TRICUSPID VALVE Structurally normal tricuspid valve. There is trace tricuspid valve regurgitation. The estimated pulmonary arterial pressure is 26.2 mmHg. PULMONARY VALVE The pulmonary valve is not well visualized. Trivial pulmonary valve regurgitation. VESSELS The inferior vena cava is normal in size. PERICARDIUM No pericardial effusion. Balaji Manning DO (Electronically Signed) Final Date:18 May 2017 16:18
--- NOTE | 2017-05-18 18:40 | HHI.DS ---
Discharge Summary Admission Date May 16, 2017 at 15:58 Discharge Date: May 18, 2017 Admitting Diagnosis pneumonia, sepsis (1) Pneumonia ICD Code: J18.9 - Pneumonia, unspecified organism Diagnosis: Principal Status: Acute (2) Sepsis ICD Code: A41.9 - Sepsis, unspecified organism Diagnosis: Principal Status: Acute (3) Leg swelling ICD Code: M79.89 - Other specified soft tissue disorders Diagnosis: Secondary Procedures None Brief History - From Admission History of present illness from the admitting physician 41-year-old male with PMH of HTN, DM, and sleep apnea. Who presented to the ED with complaints of SOB along with chest pain. Patient was seen and examined in ED stretcher with mother at bedside. He repots chest pain radiating to the back , worse with lying down, SOB worse on exertion. He also states that he feels as if his heart is working harder with exertion and could feel his heart working harder.Report a cough but no productive with no fever, but endorses chills and headaches. He states that he feels as if he has wheezing with his breathing. Denies nausea, vomiting, diarrhea, or constipation. He also repots swelling of bilateral legs X3 days, but this has improved. He does not repot a history of DVT's. He denies any known past cardiac issues. He does have a history of RLS and would like to know if he could possibly get something for this while he is in the hospital. CBC/BMP: 05/18/17 0625 05/17/17 0633 Significant Findings Laboratory Tests Test 05/16/17 12:38 05/16/17 15:45 05/17/17 06:33 05/18/17 06:25 White Blood Count 12.1 TH/MM3 (4.0-11.0) 14.1 TH/MM3 (4.0-11.0) 13.0 TH/MM3 (4.0-11.0) Red Blood Count 4.23 MIL/MM3 (4.50-5.90) 3.98 MIL/MM3 (4.50-5.90) 4.16 MIL/MM3 (4.50-5.90) Hemoglobin 11.7 GM/DL (13.0-17.0) 11.1 GM/DL (13.0-17.0) 11.7 GM/DL (13.0-17.0) Hematocrit 35.3 % (39.0-51.0) 33.4 % (39.0-51.0) 34.4 % (39.0-51.0) Neutrophils (%) (Auto) 72.5 % (16.0-70.0) 71.1 % (16.0-70.0) Neutrophils # (Auto) 8.8 TH/MM3 (1.8-7.7) 10.0 TH/MM3 (1.8-7.7) Random Glucose 185 MG/DL (74-106) Calcium Level 8.3 MG/DL (8.5-10.1) 8.3 MG/DL (8.5-10.1) Anion Gap 4 MEQ/L (5-15) Troponin I LESS THAN 0.02 NG/ML Monocytes # (Auto) 1.1 TH/MM3 (0-0.9) Imaging Last Impressions Chest X-Ray 05/16/17 1220 Signed Impressions: Service Date/Time: Tuesday, May 16, 2017 12:47 - CONCLUSION: 1. Scattered patchiness within the right lung consistent with possible developing infiltrate. Clinical correlation is recommended. 2. Mild cardiomegaly. Rito Menendez MD Lower Extremity Ultrasound 05/16/17 0000 Signed Impressions: Service Date/Time: Tuesday, May 16, 2017 17:57 - CONCLUSION: Normal examination. Michele Moura MD CT Angiography 05/16/17 0000 Signed Impressions: Service Date/Time: Tuesday, May 16, 2017 14:40 - CONCLUSION: Infiltrates throughout the right upper lobe possible areas of pneumonia. No evidence of pulmonary embolism. Michele Moura MD PE at Discharge GENERAL: Obese male in no apparent distress. CARDIOVASCULAR: Normal rate and regular rhythm without murmurs, gallops, or rubs. RESPIRATORY: Good respiratory efforts. Faint rhonchi on the right base. Otherwise clear to auscultation bilaterally. GASTROINTESTINAL: Abdomen soft, non-tender, non-distended. Normal active bowel sounds MUSCULOSKELETAL: Extremities without cyanosis, or edema. NEURO: Alert & Oriented x4 to person, place, time, situation. Moves all ext x4 PSYCH: Appropriate mood and affect. Pt update on day of discharge Patient reports is feeling much better. We discussed discharge planning at length and the need to follow-up outpatient. He is new to the area. He needs to establish with a PCP to continue to monitor and adjust his antihypertensive medications. Hospital Course 41-year-old male with PMH of HTN, DM, and sleep apnea who presented to the ED with complaints of SOB, chest pain, and bilateral leg swelling. The patient was found to have community-acquired pneumonia. He met SIRS criteria. He was treated with IV Rocephin and azithromycin. His breathing status significantly improved. He is discharged home on oral antibiotics with complete the course of treatment. The patient also had bilateral leg swelling. Lower extremity ultrasounds were negative. A 2-D echo was unremarkable. This was probably dependent edema. He is advised on wearing stockings and elevate his legs. The patient also has migraines, this may be related to uncontrolled hypertension. On arrival the patient's blood pressure were markedly elevated. He reports he normally does not have problems with his blood pressure but he does not check it routinely at home. His blood pressure improved but not normalized. His antihypertensives were adjusted but he will need further outpatient follow-up and titration of his blood pressure medications. He states he is new to the area. He was given referral to primary care physician for follow-up. Pt Condition on Discharge: Good Discharge Disposition: Discharge Home Discharge Time: > 30 minutes Discharge Instructions DIET: Follow Instructions for: Heart Healthy Diet Activities you can perform: Regular-No Restrictions Follow up Referrals: PCP Follow-up - 1 Week with Kristie Booker MD PCP Follow-up @ [facility] New Medications: Azithromycin (Azithromycin) 500 Mg Tab 500 MG PO DAILY for Infection, #4 TAB 0 Refills Cefuroxime (Cefuroxime) 500 Mg Tab 500 MG PO BID for Infection, #10 TAB 0 Refills Carvedilol (Carvedilol) 6.25 Mg Tab 6.25 MG PO BID, #60 TAB 0 Refills Continued Medications: Losartan (Losartan) 100 Mg Tab 100 MG PO DAILY for Blood Pressure Management, #30 TAB 0 Refills Metformin (Metformin) 1,000 Mg Tab 1000 MG PO BIDPC for Blood Sugar Management, #60 TAB 0 Refills Jaspreet Jimenez MD May 18, 2017 18:40
[2017-05-21] MEDS ORDERED: SUMA100T2 PO ×2 (10:24→11:16)
[2017-05-21] MEDS ORDERED: AMLO10TA2 PO ×2 (10:24→11:16)
[2017-05-21] MEDS ORDERED: TOPI1CAP22 PO (10:24)
[2017-05-21] MEDS ORDERED: ZOLP10TA3 PO (10:24)
[2017-05-21] MEDS ORDERED: CEFU1TAB20 PO (10:24)
[2017-05-21] MEDS ORDERED: GLIM4TAB PO (10:24)
[2017-05-21] MEDS ORDERED: CARV6.252 PO (11:16)
[2017-05-21] MEDS ORDERED: METF1000 PO (11:16)
== END 2017-05-18 14:56 | disposition home or self-care (01) | DRG 871 ==
LOC: NEPC 12:05 → NEDA 15:58 → N04B 18:50
PROVIDERS: ADMIT Family Medicine; ATTEND Family Medicine
DX: A41.9 Sepsis, unspecified organism (principal); J18.9 Pneumonia, unspecified organism; I11.9 Hypertensive heart disease without heart failure; Z68.43 Body mass index [BMI] 50.0-59.9, adult; R09.02 Hypoxemia; E11.65 Type 2 diabetes mellitus with hyperglycemia; G25.81 Restless legs syndrome; I25.2 Old myocardial infarction; E66.9 Obesity, unspecified; D64.9 Anemia, unspecified; G47.30 Sleep apnea, unspecified; G43.909 Migraine, unspecified, not intractable, without status migrainosus; Z79.84 Long term (current) use of oral hypoglycemic drugs
CPT/HCPCS: 71010; 71275; 80048; 82550; 82552; 82948; 83605; 83735; 83880; 84484; 85025; 85027; 85610; 85730; 87040; 93005; 93306; 93970; 94150; 96374; 96375; J0456; J0696; J1200; J1650; J1815; J1885; J2765; J7030; J7050; Q9967